=== PATIENT | female | born 1960 | race African-American/Black ===

== ENCOUNTER 2016-12-13 23:19 | Emergency (ER) | payer MEDICAID, OTHER ==
[~2016-12-13] VITALS: Ht 160 cm; Wt 68.0 kg
[~2016-12-13 23:19] MED LIST: CIPROFLOXACIN500 M2 ORAL; PHENAZOPYRIDIN200 MG ORAL
[2016-12-13] MEDS ORDERED: NKM (23:34)
[2016-12-13] MEDS ORDERED: Mylanta II UD 30ml ORAL ONE (23:45)
[2016-12-13] MEDS ORDERED: Lidocaine 2% Visc 15ml soln ORAL ONE (23:45)
--- NOTE | 2016-12-13 23:46 | Emergency Room Report ---
History of Present Illness General Chief Complaint: Nausea Source: Patient Present Illness HPI The patient ate some grass yogurt on Wednesday. she and her started feeling nausea epigastric and chest pain is burning. She also feels aches her body. She denies any fevers. There is no change in the bowels at this time. No dysuria (h/o prior UTI). No weakness. Pain is significant 6/10 and not relieved with eating. Not radiate to back. No exertional sy. Allergies: Coded Allergies: No Known Allergies (Unverified , 04/08/15) Patient History Past Medical History: see triage record Social History: Denies: alcohol use, smoking Social History Narrative Reviewed Nursing Documentation: PMH: Agreed, PSxH: Agreed Nursing Documentation-PMH Past Medical History: No Stated History Review of Systems All Other Systems: negative except mentioned in HPI Physical Exam Vital Signs Date Time Temp Pulse Resp B/P Pulse Ox O2 Delivery O2 Flow Rate FiO2 12/13/16 23:28 97.7 57 16 115/77 100 Room Air Sp02 EP Interpretation: reviewed, normal General Appearance: well appearing, no apparent distress Head: normocephalic, atraumatic Eyes: bilateral eye PERRL, bilateral eye anticteric, bilateral eye normal inspection ENT: hearing grossly normal, normal voice, moist mucus membranes Neck: full range of motion, supple Respiratory: no respiratory distress, speaking full sentences Cardiovascular #1: regular rate, rhythm Cardiovascular #2: 2+ radial (L) Gastrointestinal: normal inspection, normal bowel sounds, soft, no mass, no organomegaly, non-distended, no guarding, tenderness - epigastric Musculoskeletal: back normal, digits/nails normal, gait/station normal, normal range of motion Neurologic: alert, oriented x3, normal gait, grossly normal Psychiatric: mood/affect normal Skin: no rash Medical Decision Making Diagnostic Impression: Primary Impression: Nausea and vomiting in adult patient Additional Impression: Epigastric abdominal pain ER Course Patient with epigastric pain, NV post unusual ingestion. Ddx: gastritis, gastroenteritis, food poisoning, viral syndrome, pancreatitis, gall bladder problems amongst others. Clinically, not toxic and NAD. Will treat symptomatically. If not improved, consider labs and IV. Pain resolved. Patient stable for outpatient observation and treatment. Last Vital Signs Date Time Temp Pulse Resp B/P Pulse Ox O2 Delivery O2 Flow Rate FiO2 12/14/16 00:52 97.7 12/14/16 00:51 67 16 123/74 100 Room Air Status: improved Disposition: HOME, SELF-CARE Condition: Improved Scripts Acetaminophen With Codeine (T#3) (TYLENOL #3 TAB*) Y Tab 1 TAB ORAL Q6HR Y for For Pain, #6 TAB Prov: Ajay Grant M.D. 12/14/16 Ondansetron Odt* (ZOFRAN ODT*) 4 Mg Tab.rapdis 4 MG ORAL Q8H Y for Nausea & Vomiting, #6 TAB 1 Refill Prov: Ajay Grant M.D. 12/14/16 Lidocaine HCl (Lidocaine HCl Viscous) 100 Ml Solution 10 ML PO Q6HR Y for epigastric pain, #60 ML Prov: Ajay Grant M.D. 12/14/16 Mag Hydrox/Al Hydrox/Simeth (MAALOX MAXIMUM STRENGTH SUSP) 355 Ml Oral.susp 30 ML PO Q6HR Y for epigastric pain, #240 ML Prov: Ajay Grant M.D. 12/14/16 Famotidine (PEPCID) 20 Mg Tablet 20 MG ORAL DAILY, #30 TAB 0 Refills Prov: Ajay Grant M.D. 12/14/16 Ajay Grant M.D. December 13, 2016 23:46
[2016-12-14] MEDS ORDERED: PEPCID20 MG ORAL (00:35)
[2016-12-14] MEDS ORDERED: MAALOX MAXIMUM355 M1 PO (00:35)
[2016-12-14] MEDS ORDERED: LIDOCAINE VISCO20 ML PO (00:35)
[2016-12-14] MEDS ORDERED: ZOFRAN ODT4 MG ORAL (00:35)
[2016-12-14] MEDS ORDERED: ACETAMINOPHEN-1 EAC1 ORAL (00:35)
[2016-12-14 00:50] VITALS: BP 123/74
[2016-12-14 00:51] VITALS: BP 123/74
== END 2016-12-14 00:52 | disposition home or self-care (01) ==
LOC: EMR 23:59
DX: R11.2 Nausea with vomiting, unspecified (principal); R10.13 Epigastric pain
CPT/HCPCS: 99284